=== PATIENT | female | born 1985 | race Caucasian/White ===

== ENCOUNTER 2016-11-07 16:10 | Outpatient (CLI) | payer OTHER ==
[2016-11-07 16:39] VITALS: BMI 27.4
== END 2016-11-07 17:00 ==
LOC: FBCOUT 16:10 → FBC 16:13 → FBCOUT 17:00
PROVIDERS: ATTEND Obstetrics & Gynecology
DX: O47.1 False labor at or after 37 completed weeks of gestation (principal); Z3A.37 37 weeks gestation of pregnancy